=== PATIENT | male | born 1980 | race Two or more races ===

== ENCOUNTER 2023-07-03 23:38 | Emergency (ER) | payer OTHER ==
[~2023-07-03] VITALS: Ht 180.3 cm; Wt 63.6 kg
[2023-07-03 23:48] VITALS: BP 135/87; PULSE 113; RESP 16; TEMP 98.6
[2023-07-03] MEDS ORDERED: BICT1TAB PO (23:54)
== END 2023-07-03 23:56 | disposition left against medical advice (07) ==
LOC: EMS 23:43
DX: M79.89 Other specified soft tissue disorders (principal); Z53.21 Procedure and treatment not carried out due to patient leaving prior to being seen by health care provider